=== PATIENT | male | born 1985 | race Caucasian/White ===

== ENCOUNTER 2016-09-11 08:33 | Outpatient (CLI) | payer MEDICARE, OTHER ==
[2016-02-23 18:27] VITALS: BP 126/72
== END 2016-09-11 08:34 ==
LOC: OUT 08:33
PROVIDERS: ATTEND Nurse Practitioner Family
DX: E66.9 Obesity, unspecified (principal)
CPT/HCPCS: G0271; G0463

== ENCOUNTER 2016-11-02 00:25 | Emergency (ER) | payer MEDICARE, OTHER ==
[2016-11-02 01:07] LABS: BASOPHILS % 1.3 (0.0-1.5); EOSINOPHILS % 1.6 % (0.0-6.8); MEAN CORPUSCULAR HEMOGLOBIN 30.5 pg (28.0-34.0); MEAN CORPUSCULAR VOLUME 88.7 fl (80.0-100.0); MONOCYTES % 4.4 % (0.0-11.0)
[2016-11-02 01:18] LABS: eGFR (African) > 60; eGFR (Non-African) > 60
[2016-11-02 02:08] VITALS: BP 132/65
[2016-11-02 05:59] LABS: OCCULT BLOOD,URINE NEGATIVE (NEGATIVE); PH URINE 5.5 (5.0 - 8.0); UROBILINOGEN URINE 0.2 Eu (0.2-1.0)
--- NOTE | 2017-01-01 12:22 | ED Physician Documentation ---
General Adult - HISTORIAN Historian: patient - HPI Stated Complaint: Aches all over Chief Complaint: General Adult Additional Information: exhausted legs numb-has worked 80hrs [employer] past 7 days. was not working at all [facility] std. Onset: days ago (pt stated has worked 80 hrs this past week-exhausted) Timing: worse Severity: moderate Further Comments: yes (was not accustomed to working when std) - ROS CONST: no problems EYES/ENT: none CVS/RESP: none GI/: nausea. denies: abdominal pain, problems urinating MS/SKIN/LYMPH: none, calf pain, neck pain, joint pain NEURO/PSYCH: difficulty walking - PAST HX Past History: other (hypothryoid htn manic migraine cephalgia) Surgeries/Procedures: other (eyes) Allergies/Adverse Reactions: Allergies Allergy/AdvReac Type Severity Reaction Status Date / Time Penicillins Allergy Unknown Verified 11/26/16 02:17 haloperidol [From Haldol] AdvReac Hives Verified 11/26/16 02:17 sertraline HCl [From Zoloft] AdvReac Hives Verified 11/26/16 02:17 Home Medications: Ambulatory Orders Medication Instructions Recorded Aripiprazole [Abilify] 10 mg PO D 11/02/16 Eszopiclone [Lunesta] 1 mg PO HS 11/13/16 Ibuprofen [Advil] 600 mg PO Q6H PRN #30 tablet 11/13/16 - SOCIAL HX Smoking History: less than 1 pack/day. denies: non-smoker Alcohol Use: none Drug Use: none - FAMILY HX Family History: No - VITAL SIGNS Vital Signs: Vital Signs Temp Pulse Resp BP Pulse Ox 99.4 F 78 18 130/67 97 11/02/16 00:30 11/02/16 00:30 11/02/16 00:30 11/02/16 00:30 11/02/16 00:30 - REVIEWED ASSESSMENTS Nursing Assessment Reviewed: Yes Vitals Reviewed: Yes ED Results Lab/Radiology - Lab Results Lab Results: Lab Results 11/02/16 11/02/16 00:55 00:55 WBC 8.90 K/ul K/ul (4.00-12.00) RBC 4.55 M/ul M/ul (3.90-5.20) Hgb 13.9 g/dL g/dL (12.0-18.0) Hct 40.4 % % (37.0-53.0) MCV 88.7 fl fl (80.0-100.0) MCH 30.5 pg pg (28.0-34.0) MCHC 34.4 g/dL g/dL (30.0-36.0) RDW 12.8 % % (11.3-14.3) Plt Count 244 K/mm3 K/mm3 (130-400) Neut % (Auto) 55.8 % % (39.0-79.0) Lymph % (Auto) 34.4 % % (16.0-50.0) [place] % (Auto) 4.4 % % (0.0-11.0) Eos % (Auto) 1.6 % % (0.0-6.8) Baso % (Auto) 1.3 (0.0-1.5) Neut # 5.0 # k/uL # k/uL (1.4-7.7) Lymph # 3.0 # k/uL # k/uL (0.6-4.0) [place] # 0.4 # k/uL # k/uL (0.0-0.9) Eos # 0.2 # k/uL # k/uL (0.0-0.6) Baso # 0.1 # k/uL # k/uL (0.0-0.5) Reactive Lymphs % 2.5 % % (0.0-5.0) Reactive Lymphs # 0.2 # k/uL # k/uL (0.0-0.8) Sodium 144 mmol/L mmol/L (136-145) Potassium 3.7 mmol/L mmol/L (3.5-5.0) Chloride 99 mmol/L mmol/L (98-110) Carbon Dioxide 31 mmol/L mmol/L (20-32) BUN 15 mg/dL mg/dL (10-26) Creatinine 0.6 mg/dL mg/dL (0.4-1.5) Estimated Creat Clear 386 Est GFR ( Amer) > 60 (60 - ) Est GFR (Non-Af Amer) > 60 (60 - ) Glucose 93 mg/dL mg/dL (70-99) Calcium 9.2 mg/dL mg/dL (8.5-10.5) Total Bilirubin 0.5 mg/dL mg/dL (0.2-1.2) AST 23 U/L U/L (0-41) ALT 28 U/L U/L (0-45) Alkaline Phosphatase 93 U/L U/L (46-116) Total Protein 6.9 g/dL g/dL (6.0-8.5) Albumin 4.2 g/dL g/dL (3.0-5.5) - Orders Orders: ED Orders Category Date Time Status CBC/PLATELET/DIFF Stat Lab 11/02/16 00:55 Completed CMP Stat Lab 11/02/16 00:55 Completed URINALYSIS Stat Lab 11/02/16 01:26 Ordered General Adult Physical Exam - PHYSICAL EXAM GENERAL APPEARANCE: moderate distress EENT: eye inspection normal NECK: normal inspection, thyroid normal, supple. No: lymphadenopathy RESPIRATORY: no resp distress, chest non-tender, breath sounds normal CVS: reg rate & rhythm, heart sounds normal ABDOMEN: soft, non-tender SKIN: warm/dry, normal color. No: cyanosis, diaphoresis, jaundice EXTREMITIES: non-tender, normal range of motion, no evidence of injury NEURO: oriented X3, motor nml, sensation nml, mood/affect nml Discharge Clincal Impression: hx exhaustion from overwork Referrals: Louisa Rivero, PRN [Primary Care Provider] - 2 Days Home Medications: Ambulatory Orders Aripiprazole [Abilify] 10 mg PO D 11/02/16 Eszopiclone [Lunesta] 1 mg PO HS 11/13/16 Ibuprofen [Advil] 600 mg PO Q6H PRN #30 tablet 11/13/16 Comments: excuse from work home rest f/u w/pcp Condition: Good Disposition: HOME, SELF-CARE Decision to Admit: NO Decision Time: 01:55
== END 2016-11-02 02:00 | disposition home or self-care (01) ==
LOC: ED 00:25
DX: R07.9 Chest pain, unspecified (principal); X50.9XXA Other and unspecified overexertion or strenuous movements or postures, initial encounter; Y93.9 Activity, unspecified; Y99.9 Unspecified external cause status
CPT/HCPCS: 80053; 81002; 85025; 99283

== ENCOUNTER 2016-11-13 17:47 | Emergency (ER) | payer MEDICARE, OTHER ==
[2016-11-13 18:10] VITALS: BP 148/88
--- NOTE | 2016-11-13 18:14 | ED Physician Documentation ---
Sore Throat/Dental Pain - HISTORIAN Historian: patient - HPI Stated Complaint: right side jaw pain Chief Complaint: Dental Pain Onset: other (years) Context: Fractured Tooth Further Comments: yes (31 year old male patient presents with complaint of broken tooth. Patient states he broke his tooth years ago, states he cannot go to the dentist "I don't have the money". Took excedrin yesterday and ibuprofen today.) - ROS CONST: no problems CVS/RESP: none GI/: denies: problems urinating, nausea, vomiting, other MS/SKIN/LYMPH: denies: muscle aches, rash NEURO/PSYCH: none - PAST HX Past History: other (bipolar, HTN, HLD) Allergies/Adverse Reactions: Allergies Allergy/AdvReac Type Severity Reaction Status Date / Time Penicillins Allergy Unknown Verified 11/13/16 18:03 haloperidol [From Haldol] AdvReac Hives Verified 11/13/16 18:03 sertraline HCl [From Zoloft] AdvReac Hives Verified 11/13/16 18:03 Home Medications: Ambulatory Orders Medication Instructions Recorded Aripiprazole [Abilify] 10 mg PO D 11/02/16 Eszopiclone [Lunesta] 1 mg PO HS 11/13/16 Ibuprofen [Advil] 600 mg PO Q6H PRN #30 tablet 11/13/16 - SOCIAL HX Smoking History: cigarettes - FAMILY HX Family History: No - VITAL SIGNS Vital Signs: Vital Signs Temp Pulse Resp BP Pulse Ox 98.4 F 86 20 148/88 96 11/13/16 17:48 11/13/16 17:48 11/13/16 17:48 11/13/16 17:48 11/13/16 17:48 - REVIEWED ASSESSMENTS Nursing Assessment Reviewed: Yes Vitals Reviewed: Yes Progress - Progress Progress: Educated on dentist - [facility] information provided. Educated on pain control and den sharmin. Explained the ER could not fix a broken tooth. Reassurance that he did not have infection. Dental Pain Physical Exam - EXAM General Appearance: no acute distress, alert Head/Neck: head nml inspection, trachea midline, no lymphadenopathy, thyroid nml , neck nml inspection Eyes: eyes nml inspection, PERRL Mouth/Throat: lips nml, gums nml, pharynx nml, voice nml, no drooling, no air way problems, no thrush, membranes nml, other (poor dentalgia; fractured tooth # 46, no erythema) Respiratory: no resp. distress CVS: reg. rate & rhythm Extremities: non-tender, nml ROM Skin: normal color, warm/dry, NR, INT, PAL, DR Neuro/Psych: No: weakness Discharge Clincal Impression: Fractured tooth Qualifiers: Encounter type: sequela Fracture type: closed Qualified Code(s): S02.5XXS - Fracture of tooth (traumatic), sequela Prescriptions: Ibuprofen [Advil] 600 mg PO Q6H PRN #30 tablet PRN Reason: dental pain Referrals: Louisa Rivero, AMORN [Primary Care Provider] - 2 Days Additional Instructions: See the dentist as soon as possible. 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 Tylenol every 4 hours as needed for pain Home Medications: Ambulatory Orders Aripiprazole [Abilify] 10 mg PO D 11/02/16 Eszopiclone [Lunesta] 1 mg PO HS 11/13/16 Ibuprofen [Advil] 600 mg PO Q6H PRN #30 tablet 11/13/16 Condition: Stable Disposition: 01 HOME, SELF-CARE Decision to Admit: NO Decision Time: 18:13
[2016-11-13] MEDS ORDERED: KETOROLAC TROMETHAMINE 60 MG/2 ML VIAL ONE (18:20)
[2016-11-13] MEDS ORDERED: KETOROLAC TROMETHAMINE 60 MG/2 ML VIAL IM ONE (18:20)
== END 2016-11-13 18:20 | disposition home or self-care (01) ==
LOC: ED 17:47
DX: K03.81 Cracked tooth (principal)
CPT/HCPCS: J1885 ×2; 96372; 99282; 99283

== ENCOUNTER 2016-11-25 21:15 | Emergency (ER) | payer MEDICARE, OTHER ==
[~2016-11-25 21:15] MED LIST: NALOXONE HCL 2 MG/2 ML IVP ONE
[2016-11-25] MEDS ORDERED: NALOXONE HCL 2 MG/2 ML IVP ONE (21:19)
[2016-11-25] MEDS ORDERED: SUCCINYLCHOLINE CHLORIDE 20 MG/ML 10ML VIAL IVP ONE (21:28)
[2016-11-25] MEDS ORDERED: MIDAZOLAM HCL 5 MG/5 ML VIAL IVP ONE (21:29)
[2016-11-25] MEDS ORDERED: ROCURONIUM BROMIDE 10 MG/ML 5ML VIAL IVP ONE (21:52)
[2016-11-25] MEDS ORDERED: MIDAZOLAM HCL 2 MG/2 ML VIAL IVP ONE (21:54)
[2016-11-25] MEDS ORDERED: ATROPINE SULFATE 0.1 MG/ML DISP.SYRIN IVP ONE (22:04)
[2016-11-25] MEDS ORDERED: EPINEPHrine 0.1 MG/ML DISP.SYRIN IVP STA ×4 (22:05→22:15)
[2016-11-25] MEDS ORDERED: SODIUM BICARBONATE 5 MEQ/10 ML PED. IVP ONE (22:05)
[2016-11-25 22:21] LABS: eGFR (African) > 60; eGFR (Non-African) > 60
[2016-11-25 22:25] LABS: EOSINOPHILS % 0.8 % (0.0-6.8); MEAN CORPUSCULAR HEMOGLOBIN 31.8 pg (28.0-34.0); MEAN CORPUSCULAR VOLUME 94.7 fl (80.0-100.0); MONOCYTES % 3.2 % (0.0-11.0); NEUTROPHILS # 18.3 # k/uL (1.4-7.7)
[2016-11-25] MEDS ORDERED: ATROPINE SULFATE 0.1 MG/ML DISP.SYRIN ONE (22:56)
[2016-11-25] MEDS ORDERED: SODIUM BICARBONATE 50 MEQ/50 ML SYRINGE ONE (22:56)
[2016-11-25] MEDS ORDERED: EPINEPHrine 0.1 MG/ML DISP.SYRIN IVP ONE (22:56)
[2016-11-25] MEDS ORDERED: NALOXONE HCL 2 MG/2 ML ONE (23:07)
[2016-11-26 02:32] VITALS: BP 123/63
--- NOTE | 2016-11-26 04:37 | ED Physician Documentation ---
General Adult - HISTORIAN Historian: paramedics - HPI Stated Complaint: loc, ? overdose Chief Complaint: General Adult Onset: minutes Severity: severe Further Comments: yes (Pt is a 31 yo morbidly obese male who was found unresponsive in a living room chair at home. Pt arrived in ER unresponsive and with difficulty breathing, very coarse breath sounds and accessory muscle use. Glucose on scene was 187. Pt had vomited and appeared to have aspirated. Pt's pupils were pinpoint on initial examination, and his tongue appeared swollen. Pt was given narcan x 2 nasally prior to arrival with little effect before an IV was established. Pt's mother reported her bottle of oxycodone missing. After IV was established pt was given narcan x 2, again with no effect. See Progress section.) - ROS CONST: other (Pt unable to give ROS.) - PAST HX Past History: other (bipolar d/o, ? schizophrenia by previous record (on abilify ), HLD, HTN, morbid obesity (weight 425 lbs per pt's mother).) Allergies/Adverse Reactions: Allergies Allergy/AdvReac Type Severity Reaction Status Date / Time Penicillins Allergy Unknown Verified 11/26/16 02:17 haloperidol [From Haldol] AdvReac Hives Verified 11/26/16 02:17 sertraline HCl [From Zoloft] AdvReac Hives Verified 11/26/16 02:17 Home Medications: Ambulatory Orders Medication Instructions Recorded Aripiprazole [Abilify] 10 mg PO D 11/02/16 Eszopiclone [Lunesta] 1 mg PO HS 11/13/16 Ibuprofen [Advil] 600 mg PO Q6H PRN #30 tablet 11/13/16 - SOCIAL HX Smoking History: other (unknown smoking hx) - FAMILY HX Family History: No - VITAL SIGNS Vital Signs: Vital Signs Temp Pulse Resp BP Pulse Ox 148/88 11/13/16 17:48 - REVIEWED ASSESSMENTS Nursing Assessment Reviewed: Yes Vitals Reviewed: Yes Progress - Progress Progress: 31 yo morbidly obese male found unresponsive at home with difficulty breathing, who had obviously vomited with apparent aspiration. Pupils appeared pinpoint and tongue appeared swollen. Family reported missing oxycodone medication. Pt given doses of Narcan, intranasally and by IV after IV established, but without effect. Pt had copious and multiple episodes vomiting in ER and was suctioned as several unsuccessful attempts were made to intubate patient. A combitube was then successfully placed, but pt continued vomiting through the tube and then decompensated, no longer maintaining oxygen saturation and becoming bradycardic as the tube became dislodged. Renewed attempts at intubation and at reinsertion of the combitube were unsuccessful. Cardiac resuscitation and a difficult cricothyrotomy were then attempted unsuccessfully as the pt continued to decompensate. Pt at 2216. ED Results Lab/Radiology - Orders Orders: ED Orders Category Date Time Status CBC AUTO DIFF Routine Lab 11/25/16 21:47 Received CKMB Routine Lab 11/25/16 21:47 Received CMP Routine Lab 11/25/16 21:47 Received D DIMER Routine Lab 11/25/16 21:47 Received NT-proBNP Routine Lab 11/25/16 21:47 Received PT-INR Routine Lab 11/25/16 21:47 Received PTT Routine Lab 11/25/16 21:47 Received TROPONIN I (cTnI) Routine Lab 11/25/16 21:47 Received General Adult Physical Exam - PHYSICAL EXAM GENERAL APPEARANCE: severe distress EENT: other (pinpoint pupils, tongue swelling) NECK: other (obesity) RESPIRATORY: rhonchi, other (coarse breath sounds; ) CVS: reg rate & rhythm, heart sounds normal ABDOMEN: decreased BS, distended SKIN: diaphoresis EXTREMITIES: other (pt unresponsive) NEURO: other (pt unresponsive) Discharge Clincal Impression: Unresponsive, Probable aspiration, Respiratory failure, ? drug overdose, Referrals: Louisa Rivero, PRN [Primary Care Provider] - Home Medications: Ambulatory Orders Aripiprazole [Abilify] 10 mg PO D 11/02/16 Eszopiclone [Lunesta] 1 mg PO HS 11/13/16 Ibuprofen [Advil] 600 mg PO Q6H PRN #30 tablet 11/13/16 Condition: Critical Disposition: 20 Decision to Admit: NO Decision Time: 22:30
== END 2016-11-26 00:18 | disposition expired ==
LOC: ED 21:15
DX: J96.90 Respiratory failure, unspecified, unspecified whether with hypoxia or hypercapnia (principal); R40.20 Unspecified coma
CPT/HCPCS: 80053; 82553; 83880; 84484; 85025; 85379; 85610; 85730; G0480; J0171; J0330; J0461; J2250; J2310; 80320; 96374; 96375; 99291; S1016